=== PATIENT | female | born 1975 | race Caucasian/White ===

== ENCOUNTER 2023-05-08 14:49 | Outpatient (CLI) | payer BC | END 2023-05-08 14:50 | disposition home or self-care (01) | LOC: CSHMAMMO 14:49 | PROVIDERS: ATTEND Student in an Organized Health Care Education/Training Program | DX: Z12.31 Encounter for screening mammogram for malignant neoplasm of breast (principal) | CPT/HCPCS: 77063; 77067 ==

== ENCOUNTER 2025-05-07 14:26 | Outpatient (CLI) | payer BC | END 2025-05-07 14:27 | disposition home or self-care (01) | LOC: CSHMAMMO 14:26 | PROVIDERS: ATTEND Student in an Organized Health Care Education/Training Program | DX: Z12.31 Encounter for screening mammogram for malignant neoplasm of breast (principal) | CPT/HCPCS: 77063; 77067 ==